=== PATIENT | male | born 2000 | race Caucasian/White ===

== ENCOUNTER 2019-04-05 17:51 | Observation (INO) | payer OTHER ==
[~2019-04-05] VITALS: Ht 160 cm; Wt 40.0 kg
[~2019-04-05 17:51] MED LIST: METH4TAB81 PO
[2019-04-05 20:00] LABS: BASOPHILS % (AUTO) 0.7 % (0-1); EOSINOPHILS # (AUTO) 0.1 X10'3 (0-0.9); HEMATOCRIT 44.2 % (42.0-52.0); HEMOGLOBIN 14.7 g/dl (14.0-17.9); LYMPHOCYTES # (AUTO) 1.3 X10'3 (1.1-4.8); LYMPHOCYTES % (AUTO) 24.2 % (21-51); MEAN CORPUSCULAR HEMOGLOBIN 27.8 PG (27.0-31.0); MEAN CORPUSCULAR HGB CONC 33.2 g/dL (33.0-36.5); MEAN CORPUSCULAR VOLUME 83.9 FL (78-98); MEAN PLATELET VOLUME 10.2 FL (7.4-10.4); MONOCYTES # (AUTO) 0.5 X10'3 (0-0.9); MONOCYTES % (AUTO) 9.4 % (2-12); NEUTROPHILS # (AUTO) 3.6 X10'3 (1.8-7.7); NEUTROPHILS % (AUTO) 64.7 % (42-75); PLATELET COUNT 153 X10'3 (140-440); RED BLOOD COUNT 5.27 X10'6 (4.70-6.10); RED CELL DISTRIBUTION WIDTH 13.4 % (11.5-14.5); WHITE BLOOD COUNT 5.5 X10'3 (4.5-11.0)
[2019-04-05 20:17] LABS: ALANINE AMINOTRANSFERASE 28 U/L (12-78); ALBUMIN 4.7 G/DL (3.4-5.0); ALBUMIN/GLOBULIN RATIO 1.6 (1.1-1.5); ALKALINE PHOSPHATASE 88 IU/L (46-116); ANION GAP 9 (8-16); ASPARTATE AMINO TRANSFERASE 17 U/L (10-37); BILIRUBIN,TOTAL 2.1 MG/DL (0.1-1.0); BLOOD UREA NITROGEN 8 MG/DL (7-18); BUN/CREATININE RATIO 9.8 (5.4-32.0); CALCIUM 9.5 MG/DL (8.5-10.1); CHLORIDE 107 MMOL/L (99-107); CREATININE 0.82 MG/DL (0.60-1.10); GLUCOSE 91 MG/DL (70-104); POTASSIUM 3.4 MMOL/L (3.5-5.1); SODIUM 143 MMOL/L (135-145); TOTAL CARBON DIOXIDE 26.9 MMOL/L (24-32); TOTAL PROTEIN 7.7 G/DL (6.4-8.2); eGFR > 90 ML/MIN
[2019-04-05] MEDS ORDERED: NO HOME MEDS (20:19)
[2019-04-05 20:25] LABS: MAGNESIUM 2.1 MG/DL (1.5-2.4)
[2019-04-05] MEDS ORDERED: magnesium hydroxide 30ml (MOM) UD suspension PO PRN (20:25)
[2019-04-05] MEDS ORDERED: acetaminophen 325mg tablet PO PRN ×2 (20:25)
[2019-04-05] MEDS ORDERED: potassium Cl 20 mEq SR tablet PO PRN ×2 (20:25)
[2019-04-05] MEDS ORDERED: ondansetron/PF 4mg/2ml inj IV PRN (20:25)
[2019-04-05] MEDS ORDERED: potassium CL 10mEq/100ml bag 100 ML IV PRN ×2 (20:25)
[2019-04-05] MEDS ORDERED: magnesium 4gm in 100ml NS 100 ML IV PRN (20:25)
[2019-04-05] MEDS ORDERED: magnesium Cl slow-release 64mg tablet PO PRN (20:25)
[2019-04-05] MEDS ORDERED: magnesium 2GM in 50ml NS 50 ML IV PRN (20:25)
[2019-04-05] MEDS ORDERED: mag hydrox/Alum hydrox/simeth 30ml oral suspension PO PRN (20:25)
--- NOTE | 2019-04-05 22:24 | NUR ---
BRENDA STATES HE DOES NOT WANT AN IV. HE SATYS TJHAT HE CAN TAKE ORAL MEDS IF NEEDED AND THAT HE IS WILL TO DO BLOOD DRAW VIA [employer] EXECUTIVE. PATIENT SAYS HE JUST DOESN'T THINK HE CAN GET COMFORTABLE WITH AN IV PLACED.
--- NOTE | 2019-04-06 00:59 | NUR ---
pt placed on hospital bed for comfort.
--- NOTE | 2019-04-06 07:21 | NUR ---
Patient going to [facility] 308. I have received report from SHELIA Allen and had the opportunity to ask questions and assume patient care.
--- NOTE | 2019-04-06 07:35 | NUR ---
Patient arrived on unit at this time. No s/sx of distress noted, patient able to reposition self & make needs known.
[2019-04-06 07:37] VITALS: BP 100/45
[2019-04-06] MEDS ORDERED: K and/or MAG REPLACEMENT MC SCH (08:00)
--- NOTE | 2019-04-06 08:13 | NUR ---
Patient refused 2RN skin assessment, refusing IV. Education provided on rationale, patient verbalized understanding.
[2019-04-06 08:32] LABS: BASOPHILS % (AUTO) 0.9 % (0-1); EOSINOPHILS # (AUTO) 0.1 X10'3 (0-0.9); EOSINOPHILS % (AUTO) 1.1 % (0-6); HEMATOCRIT 43.5 % (42.0-52.0); HEMOGLOBIN 14.4 g/dl (14.0-17.9); LYMPHOCYTES # (AUTO) 1.8 X10'3 (1.1-4.8); LYMPHOCYTES % (AUTO) 33.5 % (21-51); MEAN CORPUSCULAR HEMOGLOBIN 28.1 PG (27.0-31.0); MEAN CORPUSCULAR HGB CONC 33.2 g/dL (33.0-36.5); MEAN CORPUSCULAR VOLUME 84.6 FL (78-98); MEAN PLATELET VOLUME 10.6 FL (7.4-10.4); MONOCYTES # (AUTO) 0.5 X10'3 (0-0.9); MONOCYTES % (AUTO) 8.6 % (2-12); NEUTROPHILS # (AUTO) 3.1 X10'3 (1.8-7.7); NEUTROPHILS % (AUTO) 55.9 % (42-75); PLATELET COUNT 154 X10'3 (140-440); RED BLOOD COUNT 5.14 X10'6 (4.70-6.10); RED CELL DISTRIBUTION WIDTH 13.4 % (11.5-14.5); WHITE BLOOD COUNT 5.5 X10'3 (4.5-11.0)
[2019-04-06 08:38] LABS: ALBUMIN 4.6 G/DL (3.4-5.0); ANION GAP 10 (8-16); BLOOD UREA NITROGEN 12 MG/DL (7-18); BUN/CREATININE RATIO 14.1 (5.4-32.0); CALCIUM 9.5 MG/DL (8.5-10.1); CHLORIDE 105 MMOL/L (99-107); CREATININE 0.85 MG/DL (0.60-1.10); GLUCOSE 74 MG/DL (70-104); POTASSIUM 3.5 MMOL/L (3.5-5.1); SODIUM 144 MMOL/L (135-145); TOTAL CARBON DIOXIDE 28.9 MMOL/L (24-32); eGFR > 90 ML/MIN
[2019-04-06 11:00] VITALS: BP 101/60
--- NOTE | 2019-04-06 12:28 | NUR ---
Patient stable for discharge per MD orders. All discharge instructions reviewed, all questions answered. Extra education provided on follow-up, smoking cessation, and symptoms worsening. All patient questions answered. community development planner removed. Per patient request, patient ambulated to [facility] at 1210 to transport self home. No s/sx of distress, all needs met at this time per patient.
== END 2019-04-06 12:05 | disposition home or self-care (01) ==
LOC: ER 17:51 → ED HOLD 20:22 → MED 3N 04-06 07:35
PROVIDERS: ADMIT Hospitalist; ATTEND Family Medicine
DX: J93.11 Primary spontaneous pneumothorax (principal); F12.90 Cannabis use, unspecified, uncomplicated
CPT/HCPCS: 36415; 71046; 71101; 71250; 80048; 80053; 83735; 83880; 84484; 85025; 87081; 93005; 99285; G0378

== ENCOUNTER 2020-12-21 08:23 | Emergency (ER) | payer BC, OTHER ==
[~2020-12-21] VITALS: Ht 160 cm; Wt 45.0 kg
[~2020-12-21 08:23] MED LIST changes: -METH4TAB81 PO; +NO HOME MEDS
[2020-12-21 09:41] VITALS: BP 159/72
== END 2020-12-21 11:34 | disposition home or self-care (01) ==
LOC: ER 08:24
DX: J93.83 Other pneumothorax (principal)
CPT/HCPCS: 71045; 93005; 99283